=== PATIENT | male | born 1980 | race Caucasian/White ===

== ENCOUNTER 2017-12-26 14:57 | Emergency (ER) | payer OTHER ==
[~2017-12-26] VITALS: Ht 188 cm; Wt 90.7 kg
[2017-12-26] MEDS ORDERED: HYDHCL25 PO (16:32)
[2017-12-26] MEDS ORDERED: Triamcinolone A15 GM TOP (16:32)
== END 2017-12-26 16:48 | disposition home or self-care (01) ==
LOC: ER 14:57
DX: L25.9 Unspecified contact dermatitis, unspecified cause (principal); Z88.8 Allergy status to other drugs, medicaments and biological substances; Z79.899 Other long term (current) drug therapy
CPT/HCPCS: 96372; 99283; J3301

== ENCOUNTER 2019-06-24 16:39 | Emergency (ER) | payer OTHER ==
[~2019-06-24] VITALS: Ht 188 cm; Wt 90.7 kg
[~2019-06-24 16:39] MED LIST: Crutch1 EACH MISC; HYDHCL25 PO; Norco 5-325 Ta1 EACH PO; Triamcinolone A15 GM TOP
== END 2019-06-24 20:15 | disposition home or self-care (01) ==
LOC: ER 16:39
DX: S60.222A Contusion of left hand, initial encounter (principal); F17.200 Nicotine dependence, unspecified, uncomplicated; Z88.6 Allergy status to analgesic agent; W22.8XXA Striking against or struck by other objects, initial encounter
CPT/HCPCS: 73130; 99283-25

== ENCOUNTER 2019-07-14 19:59 | Emergency (ER) | payer OTHER ==
[~2019-07-14] VITALS: Ht 188 cm; Wt 93.0 kg
== END 2019-07-14 21:54 | disposition home or self-care (01) ==
LOC: ER 19:59
DX: R21 Rash and other nonspecific skin eruption (principal); Z88.8 Allergy status to other drugs, medicaments and biological substances; F17.210 Nicotine dependence, cigarettes, uncomplicated
CPT/HCPCS: 99282